=== PATIENT | female | born 1965 ===

== ENCOUNTER → 2021-07-04 15:59 | Outpatient (CLI) | payer OTHER, SELFPAY ==
--- NOTE | 2021-07-04 10:45 | DI.RAD_ITS ---
Exam(s) XR ANKLE RT COMPLETE EXAM: XR ANKLE RT COMPLETE CLINICAL HISTORY: Persistent pain, rt ankle pain, M25.571. TECHNIQUE: 2D digital imaging was performed. COMPARISON: No exams were available for comparison FINDINGS: Exam is limited by the patient's body habitus. BONES: No acute fracture is present. No bony destructive lesion is seen. Spurring at the malleoli. Prominent calcaneal spurs. Prominent spurring dorsal talus. JOINTS: The ankle mortise is normally aligned. The joint space is well maintained. SOFT TISSUE: Diffuse edema. IMPRESSION: Degenerative changes and heel spurs. DATA REPOSITORY: RADIATION DOSE DELIVERED:
== END ==
PROVIDERS: Visit Provider Nurse Practitioner Family
DX: M25.571 Pain in right ankle and joints of right foot (principal); M77.31 Calcaneal spur, right foot; R60.0 Localized edema
CPT/HCPCS: 73610